=== PATIENT | female | born 1975 | race Caucasian/White ===

== ENCOUNTER 2021-06-28 08:17 | Outpatient (CLI) | payer OTHER | END 2021-06-28 08:41 | disposition home or self-care (01) | LOC: MAMO-SONO 08:17 | PROVIDERS: ATTEND Specialist | DX: N64.4 Mastodynia (principal); N84.0 Polyp of corpus uteri ==

== ENCOUNTER → 2024-02-25 | Outpatient (CLI) | payer OTHER | END | disposition home or self-care (01) | LOC: SONOGRAMA 10:03 | DX: N93.9 Abnormal uterine and vaginal bleeding, unspecified (principal) ==